=== PATIENT | male | born 1990 | race Caucasian/White ===

== ENCOUNTER 2022-12-09 16:52 | Emergency (ER) | payer OTHER, SELFPAY ==
[2022-12-09 17:09] VITALS: BP 144/76; PULSE 70; RESP 18; TEMP 36.8; O2SAT 99; BMI 32.3
--- NOTE | 2022-12-09 18:22 | ED.EAR ---
HPI - Ear Problem General Chief complaint: Ear Problems Stated complaint: left ear pressure Related Data Allergies Allergy/AdvReac Type Severity Reaction Status Date / Time bee pollen [BEE STINGS] Allergy Unknown SWELLING Unverified 01/13/20 15:59 Physical Exam Vital Signs: Vital Signs: Last Vital Signs Temp 98.3 F 12/09/22 17:09 Pulse 70 12/09/22 17:09 Resp 18 12/09/22 17:09 BP 144/76 H 12/09/22 17:09 Pulse Ox 99 12/09/22 17:09 O2 Del Method Room Air 12/09/22 17:09 BMI result Body Mass Index 32.3
== END 2022-12-09 18:52 | disposition left against medical advice (07) ==
PROVIDERS: Emergency Provider Emergency Medicine
DX: H92.02 Otalgia, left ear (principal); Z53.21 Procedure and treatment not carried out due to patient leaving prior to being seen by health care provider
CPT/HCPCS: 99281

== ENCOUNTER 2023-04-06 19:54 | Emergency (ER) | payer OTHER, SELFPAY ==
--- NOTE | 2023-04-06 | ECG_ITS ---
Test Reason : CHEST PAIN Blood Pressure : / mmHG Vent. Rate : 097 BPM Atrial Rate : 097 BPM P-R Int : 166 ms QRS Dur : 090 ms QT Int : 352 ms P-R-T Axes : 048 038 032 degrees QTc Int : 447 ms Normal sinus rhythm Normal ECG When compared with ECG of 31-AUG-2017 07:45, No significant change was found Referred By: Generic ED Physician Electronically Signed By:Asim Gilman
[2023-04-06 20:10] VITALS: BP 148/83; PULSE 94; RESP 18; TEMP 37; O2SAT 97; BMI 35.8
[2023-04-06 21:08] LABS: MANUAL DIFF FLAG NO
[2023-04-06 21:10] LABS: Basophils Absolute Auto 0.1 X10*3/uL (0.0-0.2); Basophils Percent Auto 0.6 % (0-2); Eosinophils Absolute Auto 0.5 X10*3/uL (0.0-0.4); Eosinophils Percent Auto 3.9 % (0-4); Hematocrit 43.3 % (42.0-52.0); Hemoglobin 15.2 g/dl (14.0-18.0); Imm Gran Abs Auto 0.03 X10*3/uL (0.00-0.03); Imm Gran Pct Auto 0.2 % (0.0-0.4); Lymphocytes Absolute Auto 3.4 X10*3/uL (1.2-4.9); Mean Corpuscular HGB Conc 35.1 g/dl (31.0-36.0); Mean Corpuscular Volume 85.6 fL (80.0-98.0); Mean Platelet Volume 11.2 fL (9.4-12.4); Monocytes Percent Auto 8.5 % (2-11); Neutrophils Absolute Auto 7.2 x10*3/uL (2.0-8.3); Neutrophils Percent Auto 58.8 % (45-73); Platelet Count 261 X10*3/uL (160-400); Red Blood Count 5.06 X10*6/uL (4.60-5.80); Red Cell Distribution Width 13.2 % (11.0-16.0); White Blood Count 12.2 X10*3/uL (4.8-10.8)
[2023-04-06 21:27] LABS: Alanine Aminotransferase 17 U/L (0-40); Albumin Level 4.4 g/dL (3.5-5.0); Alkaline Phosphatase 99 U/L (39-117); Anion Gap 13 (12-20); Aspartate Amino Transferase 18 U/L (5-37); Bilirubin Total 0.4 mg/dL (0.0-1.0); Blood Urea Nitrogen 15 mg/dL (9-16); Calcium 9.7 mg/dL (8.4-10.2); Carbon Dioxide 26 mmol/L (22-29); Chloride 106 mmol/L (96-108); Creatinine Clr Calc Pharmacy 126.8; Estimated Glomerular Filt Rate > 60; Glucose Random 121 mg/dL (60-115); Potassium 3.8 mmol/L (3.3-5.1); Sodium 141 mmol/L (135-145); Total Protein 7.8 g/dL (6.5-8.0)
[2023-04-06 21:35] LABS: Troponin-I High Sensitivity < 2.7 ng/L (<3.5-35.0)
--- NOTE | 2023-04-06 22:30 | ED.GENADULT ---
HPI - General Adult General Chief complaint: General Medical Stated complaint: chest pain,sob sweating,shaking Time Seen by Provider: 04/06/23 22:07 Source: patient Mode of arrival: ambulatory History of Present Illness HPI narrative: 33-year-old male without significant past medical history, denies any drugs or alcohol, states that this is his 2nd episode of shaking and sweating uncontrollably and feeling very anxious but denies palpitations and instead states that he did not really have chest pain but when he began experiencing all of these symptoms he felt his that his chest was tight. He denies any recent fever, chills, nausea/ vomiting but states that he had an episode of diarrhea after this. Patient reports that this happened approximately 1 week ago and he was seen at [facility]. Patient states that these events seem to occur shortly after he eats a large meal. Patient also endorses that he has a rash to bilateral hands/fingers that is been ongoing for over a year and is intermittently itchy but endorses that he missed his dermatology appointment. Related Data Allergies Allergy/AdvReac Type Severity Reaction Status Date / Time bee pollen [BEE STINGS] Allergy Unknown SWELLING Verified 04/06/23 20:13 Review of Systems Review of Systems: Pertinent positives and negatives as stated in HPI [facility] Past Medical History Source: nursing notes reviewed Social History Social History Advance Directives: No Advance Directives Information Provided: Yes Physical Exam ED Vital Signs: Vital Signs - 24 hr 04/06/23 20:10 Temperature 98.6 F Pulse Rate 94 Respiratory Rate 18 Blood Pressure 148/83 H Pulse Oximetry 97 Oxygen Delivery Method Room Air BMI result Body Mass Index 35.8 VITAL SIGNS: Reviewed. GENERAL: Well developed, well nourished, in no acute distress. HEAD: Normocephalic/atraumatic EYES: PERRLA, EOMI EARS: Ext canals without abnormality NOSE: Nares patent bilateral OROPHARYNX: no oral lesions noted, posterior pharynx clear NECK: Supple, no adenopathy LUNGS: Normal breath sounds. No adventitious sounds or accessory muscle use. SpO2<97> CARDIOVASCULAR: Regular rate and rhythm without noted murmurs ABDOMEN: Soft, non-tender, non-distended with bowel sounds. MUSCULOSKELETAL: No tenderness, deformities, or effusions noted on gross inspection. EXTREMITIES: No cyanosis, clubbing or edema. SKIN: Inspection of the skin reveals rash to bilateral hands without nail involvement, no noted swollen joints, the rash is nowhere else. NEUROLOGIC: Alert and oriented x 4. Strength and sensation to light touch were grossly intact x 4. Medical Decision Making Medical Decision Making [facility] Narrative: 33-year-old male with history and clinical presentation, DDX: Anxiety, Food allergy/IBS/IBD, regarding rash on bilateral hands some form of contact dermatitis does not appear to be consistent with psoriasis or eczema I reviewed all investigations and hematologic indices demonstrate a non infectious leukocytosis, there is no left shift, patient is afebrile. Chemistry indices are grossly within normal limits and there is no demonstrated NOAH or electrolytes/liver enzymes derangements. High sensitivity troponin is undetectable, although patient is not describing symptoms consistent with an ACS etiology. There are no acute findings on EKG. My interpretation is that patient may be experiencing symptoms associated with combination of panic disorder and IBS symptoms. There were no findings to suggest ACS/infectious etiology and no electrolyte or renal dysfunction. Patient was strongly encouraged to follow-up with his primary care doctor by calling the office 1st thing in the morning Differential Diagnosis Differential Diagnoses: The differential diagnosis associated with the presentation includes Please see the discussion above Admission/Observation Consideration of admission/observation: Escalation of care including admission/observation considered Please see the discussion above Lab Data [facility] Lab Attestation statement: I reviewed the patient's lab results. Please see the discussion above 04/06/23 21:00 04/06/23 21:00 Labs: Lab Results 04/06/23 Range/Units 21:00 WBC 12.2 H (4.8-10.8) X10*3/uL RBC 5.06 (4.60-5.80) X10*6/uL Hgb 15.2 (14.0-18.0) g/dl Hct 43.3 (42.0-52.0) % MCV 85.6 (80.0-98.0) fL MCH 30.0 (27.0-33.0) pg MCHC 35.1 (31.0-36.0) g/dl RDW 13.2 (11.0-16.0) % Plt Count 261 (160-400) X10*3/uL MPV 11.2 (9.4-12.4) fL Immature Gran % (Auto) 0.2 (0.0-0.4) % Neut % (Auto) 58.8 (45-73) % Lymph % (Auto) 28.0 (20-40) % Kendall % (Auto) 8.5 (2-11) % Eos % (Auto) 3.9 (0-4) % Baso % (Auto) 0.6 (0-2) % Lymph # (Auto) 3.4 (1.2-4.9) X10*3/uL Kendall # (Auto) 1.0 (0.1-1.2) X10*3/uL Eos # (Auto) 0.5 H (0.0-0.4) X10*3/uL Baso # (Auto) 0.1 (0.0-0.2) X10*3/uL Abs Immat Gran (auto) 0.03 (0.00-0.03) X10*3/uL Absolute Neuts (auto) 7.2 (2.0-8.3) x10*3/uL Absolute Nucleated RBC 0.000 (0.0-0.012) X10*3/uL Nucleated RBC % (auto) 0.0 (0.0-0.2) /100WBC Sodium 141 (135-145) mmol/L Potassium 3.8 (3.3-5.1) mmol/L Chloride 106 (96-108) mmol/L Carbon Dioxide 26 (22-29) mmol/L Anion Gap 13 (12-20) BUN 15 (9-16) mg/dL Creatinine 0.92 (0.5-1.4) mg/dL Estim Creat Clear Calc 126.8 Estimated GFR > 60 Random Glucose 121 H (60-115) mg/dL Calcium 9.7 (8.4-10.2) mg/dL Total Bilirubin 0.4 (0.0-1.0) mg/dL AST 18 (5-37) U/L ALT 17 (0-40) U/L Alkaline Phosphatase 99 (39-117) U/L Troponin I High Sens < 2.7 (<3.5-35.0) ng/L Total Protein 7.8 (6.5-8.0) g/dL Albumin 4.4 (3.5-5.0) g/dL Independent Interpretation I performed an independent interpretation of an: EKG Interpretation: Normal sinus rhythm, HR-97, no STEMI, WV/QRS/QTC is within normal limits. Discharge Plan Discharge Clinical Impression: Anxiety, Irritable bowel syndrome (IBS), Allergy, food, Contact dermatitis Patient Disposition: Home, Self-Care Instructions: Anxiety (ED), Contact Dermatitis (ED), Irritable Bowel Syndrome (ED), Food Allergy (ED) Additional Instructions: 1. I recommend that you follow-up with your primary care doctor by calling the office 1st thing tomorrow morning and setting up an appointment for re-evaluation and further outpatient management. 2. Several of these information packet described conditions that would need to be further worked up for confirmation. Return to the ER if you develop any acute worsening of your symptoms. Referrals: Alejandra Mena MD [Primary Care Provider] -
[2023-04-06 22:53] VITALS: PULSE 71; RESP 16; O2SAT 99
== END 2023-04-06 22:54 | disposition home or self-care (01) ==
PROVIDERS: Emergency Provider Student in an Organized Health Care Education/Training Program; PCP Family Medicine
DX: F41.9 Anxiety disorder, unspecified (principal); L23.6 Allergic contact dermatitis due to food in contact with the skin; K58.9 Irritable bowel syndrome, unspecified
CPT/HCPCS: 36415; 80053; 84484; 85025; 93005; 99283

== ENCOUNTER → 2023-04-06 20:04 | Outpatient (BNV) | payer OTHER, SELFPAY | PROVIDERS: Emergency Provider Student in an Organized Health Care Education/Training Program; PCP Family Medicine; Visit Provider Internal Medicine Cardiovascular Disease | DX: R07.9 Chest pain, unspecified (principal) | CPT/HCPCS: 93010 ==

== ENCOUNTER → 2023-04-18 15:31 | Outpatient (BNVA) | payer SELFPAY | PROVIDERS: PCP Family Medicine ==

== ENCOUNTER 2023-04-27 12:01 | Emergency (ER) | payer OTHER, SELFPAY ==
[2023-04-27 13:13] VITALS: BP 148/86; PULSE 73; RESP 18; TEMP 36.3; O2SAT 98; BMI 35.2
--- NOTE | 2023-04-27 13:15 | ED_ITS ---
HPI - General Adult General Chief complaint: Upper Respiratory Symptoms Stated complaint: Cold symptoms Time Seen by Provider: 04/27/23 14:35 Source: patient, RN notes reviewed and old records reviewed Mode of arrival: ambulatory History of Present Illness HPI narrative: 33-year-old male with no significant past medical history presenting to the ED complaining of nasal congestion, rhinorrhea, myalgias, sore throat and sneezing x few days. Admits to COVID-19 testing at home which was negative. 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 Denies fever/chills, ear pain, CP/SOB, cough, travel Related Data Allergies Allergy/AdvReac Type Severity Reaction Status Date / Time bee pollen [BEE STINGS] Allergy Unknown SWELLING Verified 04/27/23 13:13 Review of Systems Review of Systems: Constitutional: No Fever, No Chills ENT/Mouth: No Ear Pain, + Nasal Congestion, No Sinus Pain, No Hoarseness, + sore throat, +Rhinorrhea, No Swallowing Difficulty Cardiovascular: No Chest Pain, No SOB Respiratory: +Cough, No Sputum, No Wheezing Gastrointestinal: No Nausea, No Vomiting, No Diarrhea, No Constipation, No Abdominal pain Musculoskeletal: No joint pain, + Myalgias, No Joint Swelling Skin: No Skin Lesions, No rash Neuro: No Weakness, No Numbness, No Paresthesias Yes all other systems are reviewed and are negative Constitutional: Constitutional: Reports as per [facility] Past Medical History Attestation statement: The following information was validated with the patient. Source: old records reviewed Social History Social History Advance Directives: No Physical Exam ED Vital Signs: Vital Signs - 24 hr 04/27/23 13:13 Temperature 97.4 F Pulse Rate 73 Respiratory Rate 18 Blood Pressure 148/86 H Pulse Oximetry 98 Oxygen Delivery Method Room Air BMI result Body Mass Index 35.2 Const General: cooperative, healthy appearing and no acute distress Orientation/consciousness: patient oriented x3 Limitations: no limitations HENMT Head: Yes normal to inspection and Yes atraumatic Ears: hearing grossly normal bilaterally, external ears normal, TM's normal bilaterally and mastoids normal General nose exam: Normal external nose present Face and sinus: Yes normal facial exam Mouth: Normal oral and palatal mucosa present Throat: Yes posterior oropharynx normal, Yes uvula midline, No peritonsillar mass, No uvula laterally displaced and No uvular edema Eyes General: appearance normal, both eyes and all related structures EOM: EOMs intact bilaterally Neck Neck: Yes normal visual inspection and Yes no meningeal signs Resp Effort & Inspection: normal respiratory effort and no respiratory distress Auscultation: clear to auscultation bilaterally, no crackles and no wheezes Cardio Rate: regular rate Heart sounds: S1 normal heart sound present and S2 normal heart sound present Skin Rashes: no rashes Wounds: no wounds Neuro General: patient oriented x3, tone normal and no meningeal signs Cranial nerves: Yes CN's II-XII intact bilaterally Gait exam (Neuro): Normal gait present Extrem General: Yes normal to inspection Course Course Course Narrative: This is a rapid medical exam: Additional HPI, ROS, PE not included below will be deferred to primary provider. Patient is a 33-year-old male presenting to the ED with complaint of nasal congestion with yellow/green mucous since yesterday, sore throat yesterday which improved with salt water gargle. Denies fevers. Tested negative for Covid at home. Works at [employer], states many co-workers are sick. Plan: viral and strep swabs -RSV positive Results discussed with patient including worrisome signs and symptoms and strict return precautions, and when to return to the emergency department. They verbalized understanding and feel safe for discharge at this time. Medical Decision Making Medical Decision Making [facility] Narrative: 33-year-old male with no significant past medical history presenting to the ED complaining of nasal congestion, rhinorrhea, myalgias, sore throat and sneezing x few days. On exam VSS, NAD, nontoxic appearing, lungs CTA. Exam otherwise nonfocal. Concern for viral illness. Lower suspicion for pneumonia, ACS/PE or strep throat. No evidence of BUSINESS ASSISTANT/retropharyngeal abscess Plan: Viral testing, rapid strep Please refer to course for remaining clinical decision making, interpretation of labs/imaging results, and discussions with consultants and/or family members. Differential Diagnosis Differential Diagnoses: The differential diagnosis associated with the presentation includes As above Lab Data [facility] Lab Attestation statement: I reviewed the patient's lab results. Labs: Lab Results 04/27/23 Range/Units 13:42 Influenza Type A (PCR) NEGATIVE (Negative) Influenza Type B (PCR) NEGATIVE (Negative) RSV RNA Qual (PCR) POSITIVE A (Negative) SARS-CoV-2 RNA (RT-PCR) NEGATIVE (Negative) S. pyogenes GrpA MECCA Negative (Negative) External Record Review External record reviewed: Inpatient record, Office record, Outpatient record, Prior outpatient labs, Prior outpatient radiology, Primary care record and Outside ED record Tests considered The following testing was considered but not selected: As above Prescription Management I considered prescription management with: Pain Medication and Antibiotic Discharge Plan Discharge Clinical Impression: Respiratory syncytial virus (RSV) Patient Disposition: Home, Self-Care Referrals: Alejandra Mena MD [Primary Care Provider] - 5 days
[2023-04-27 14:27] LABS: IDNOW Serial# 08D9AD1C; Strep A Nucleic Acid Negative (Negative)
[2023-04-27 14:40] LABS: Influenza A PCR NEGATIVE (Negative); Influenza B PCR NEGATIVE (Negative); Resp Syncy Virus RNA Qual PCR POSITIVE (Negative); SARS COV2 PCR INHOUSE NEGATIVE (Negative)
== END 2023-04-27 16:06 | disposition home or self-care (01) ==
PROVIDERS: Registered Nurse Emergency; Emergency Provider Emergency Medicine; PCP Family Medicine
DX: R09.81 Nasal congestion (principal); B97.4 Respiratory syncytial virus as the cause of diseases classified elsewhere; Z20.822 Contact with and (suspected) exposure to COVID-19; Z20.828 Contact with and (suspected) exposure to other viral communicable diseases
CPT/HCPCS: 0241U; 87651; 99283

== ENCOUNTER 2023-09-06 07:58 | Emergency (ER) | payer OTHER, SELFPAY ==
--- NOTE | ~2023-09-06 | XR_ITS ---
EXAMINATION: XR CHEST CLINICAL INFORMATION: Chest tightness. COMPARISON: Chest radiograph 09/09/2017. TECHNIQUE: 2 views of the chest were obtained. FINDINGS: No significant abnormality is noted involving the heart, lungs, mediastinum, bony thorax or soft tissues. XR/XR chest 2V IMPRESSION: Unremarkable examination.
[2023-09-06 08:12] VITALS: BP 146/88; PULSE 74; RESP 17; TEMP 35.7; O2SAT 100; BMI 40.6
--- NOTE | 2023-09-06 09:10 | ED_ITS ---
HPI - General Adult General Chief complaint: Anxiety Stated complaint: anxiety Time Seen by Provider: 09/06/23 09:07 Source: patient, RN notes reviewed and old records reviewed Mode of arrival: ambulatory Limitations: no limitations History of Present Illness HPI narrative: 33 year old male with pmhx significant for anxiety presents to the ED today for evaluation of increased anxiety x1 year, worsening over the last week. Endorses feeling overwhelmed, hopeless. Admits to intermittent chest tightness. No chest pain. He reports increased family stressors as his father who is almost 60 years old was almost arrested last week. He states that this has been weighing on him. Admits to increased anxiety last summer for which his PCP placed him on an anti- anxiety medication which helped at the time. He has not taken this medication since and cannot recall the name of this. Reports seeing a therapist via telehealth in the past however discontinued therapy as he did not like speaking with someone over the phone. He would prefer in person counseling. States he has a great support system at home in family members. Denies SI/HI. Denies AH/TH/VH. Denies ilicit substance use. Denies etoh consumption. Denies fevers, chilld, sore throat, cough, hemoptysis, shortness of breath, wheezing, N/V, tingling in extremities, calf pain/swelling. Related Data Previous Rx's ?Medication ?Instructions ?Recorded hydroxyzine HCl 25 mg tablet 25 mg PO TID PRN anxiety #30 tabs 09/06/23 Allergies Allergy/AdvReac Type Severity Reaction Status Date / Time bee pollen [BEE STINGS] Allergy Unknown SWELLING Verified 09/06/23 08:18 Review of Systems 2 Review of Systems: Constitutional: No fever, chills, fatigue, night sweats, weight changes ENT/Mouth: No ear pain, hearing loss, nasal congestion, sinus pain, rhinorrhea, sore throat Eyes: No eye pain, swelling, redness, vision changes, discharge Cardio: No chest pain, palpitations, ZAVALA, orthopnea, peripheral edema, +chest tightness Pulm: No SOB, cough, sputum, wheezing, dyspnea, hemoptysis GI: No nausea, vomiting, hematemesis, abdominal pain, diarrhea, constipation, hematochezia, melena : No irregular bleeding, dysuria, frequency, urgency, hesitancy, hematuria, flank pain, urinary flow changes, urinary incontinence or retention MSK: No back pain, neck pain, joint pain, myalgias Skin: No lesions, rashes Neuro: No weakness, numbness, paresthesias, LOC, dizziness, headache Psych: No panic, depression, SI/HI, AH/VH, +anxiety All other systems reviewed and are negative. FORMERLY [facility], [facility] Past Medical History Attestation statement: The following information was validated with the patient. Source: old records reviewed and nursing notes reviewed Social History Social History Advance Directives: No Advance Directives Information Provided: No Do you have a plan to hurt others: No Plan Physical Exam ED Vital Signs: Vital Signs - 24 hr 09/06/23 08:12 Temperature 96.3 F L Pulse Rate 74 Respiratory Rate 17 Blood Pressure 146/88 H Pulse Oximetry 100 Oxygen Delivery Method Room Air BMI result Body Mass Index 40.6 patient hypertensive, vitals otherwise WNL. Const General: cooperative, healthy appearing, comfortable and no acute distress Orientation/consciousness: patient oriented x3 Limitations: no limitations HENMT Head: Yes normal to inspection, Yes No palpable skull fracture present, Yes normocephalic and Yes atraumatic Eyes General: appearance normal, both eyes and all related structures Conjunctivae: conjunctivae normal Sclerae: sclerae normal Pupils: Equal, round and reactive pupils present Neck Neck: Yes normal visual inspection, Yes full ROM, Yes no lymphadenopathy and Yes no meningeal signs Chest Chest palpation & inspection: normal inspection of the chest and normal palpation of entire chest wall Resp Effort & Inspection: normal respiratory effort and able to speak in complete sentences Auscultation: clear to auscultation bilaterally Cardio Jugular venous distension: no JVD Rate: regular rate Rhythm: regular rhythm Skin General skin exam: no rashes or lesions noted Neuro General: patient oriented x3, gait normal, no meningeal signs and no focal motor deficits Cranial nerves: Yes Equal, round and reactive pupils present Motor exam (neuro): 5/5 motor strength present throughout and Pronator motor function not present Coordination: [id number]-rn-[id number] test normal, yjfj-[id number] test normal and Normal rapid alternating movements of the distal upper extremity present (Neuro) Pupils: Normal pupillary reactivity/response: bilateral Course Course Course Narrative: 0941-- On chart review, patient was prescribed hydroxyzine by his PCP in November of 2022. I mentioned this medication to patient he and he states that this was the medication that helped with his anxiety last year. I offered to give him a dose in the emergency department today however he drove both himself and his son to the ED today and will not be able to get another ride home. He states that he would rather take this medication when he gets home from his visit. > labs and ekg pending 1130-- CBC showing leukocytosis to 14.5 without left shift. No anemia. H&H stable. Chemistry without acute electrolyte abnormality requiring intervention. Total bili 1.4. Liver function WNL. Renal function WNL. Troponin undetectable > no ACS. Lipase WNL. He was tested negative for COVID, flu, RSV. EKG showing normal sinus rhythm with sinus arrhythmia with rate of 66 bpm, QT 376, QTC 394, no acute ischemic changes or ST elevations. > wbc slightly elevated likely secondary to acute anxiety. no concern for infection at this time. I feel patient is safe for discharge home. As hydroxyzine helps his anxiety last year, this has been sent to pharmacy for him. Will also provide contact information for [facility] for therapy. Patient has remained stable throughout ED visit today. Discussed worrisome signs and symptoms and when to return to the ED. All questions answered at this time. Patient is agreeable with disposition and stable for discharge. Medical Decision Making Medical Decision Making [facility] Narrative: 33 year old male with pmhx significant for anxiety presents to the ED today for evaluation of increased anxiety x1 year, worsening over the last week. Patient hypertensive, vitals otherwise WNL. He is nontoxic-appearing and in no acute distress. On exam, can warm, dry, intact. Exam is nonfocal. Cerebellum intact. Regular rate and rhythm. Lungs are CTA bilaterally. Anterior, lateral and posterior chest wall without tenderness or crepitus. No deformities. Ambulating with steady gait. Differential diagnosis includes anemia, electrolyte abnormality, anxiety. Lower suspicion for ACS or arrhythmia. Unlikely pneumonia, viral syndrome, ICH, CVA/TIA, dissection, suicidal ideation, polysubstance abuse, ETOH abuse or withdrawal. Plan for basic labs, EKG, re-evaluation. Differential Diagnosis Differential Diagnoses: The differential diagnosis associated with the presentation includes as above. Admission/Observation Not indicated. Lab Data [facility] Lab Attestation statement: I reviewed the patient's lab results. as above. 09/06/23 09:35 09/06/23 09:35 Labs: Lab Results 09/06/23 09/06/23 Range/Units 09:35 10:11 WBC 14.5 H (4.8-10.8) X10*3/uL RBC 5.77 (4.60-5.80) X10*6/uL Hgb 16.9 (14.0-18.0) g/dl Hct 47.7 (42.0-52.0) % MCV 82.7 (80.0-98.0) fL MCH 29.3 (27.0-33.0) pg MCHC 35.4 (31.0-36.0) g/dl RDW 13.2 (11.0-16.0) % Plt Count 272 (160-400) X10*3/uL MPV 10.6 (9.4-12.4) fL Immature Gran % (Auto) 0.5 H (0.0-0.4) % Neut % (Auto) 72.2 (45-73) % Lymph % (Auto) 18.9 L (20-40) % [place] % (Auto) 6.0 (2-11) % Eos % (Auto) 1.9 (0-4) % Baso % (Auto) 0.5 (0-2) % Lymph # (Auto) 2.7 (1.2-4.9) X10*3/uL [place] # (Auto) 0.9 (0.1-1.2) X10*3/uL Eos # (Auto) 0.3 (0.0-0.4) X10*3/uL Baso # (Auto) 0.1 (0.0-0.2) X10*3/uL Abs Immat Gran (auto) 0.07 H (0.00-0.03) X10*3/uL Absolute Neuts (auto) 10.5 H (2.0-8.3) x10*3/uL Absolute Nucleated RBC 0.000 (0.0-0.012) X10*3/uL Nucleated RBC % (auto) 0.0 (0.0-0.2) /100WBC Sodium 140 (135-145) mmol/L Potassium 4.6 (3.3-5.1) mmol/L Chloride 106 (96-108) mmol/L Carbon Dioxide 24 (22-29) mmol/L Anion Gap 15 (12-20) BUN 9 (9-16) mg/dL Creatinine 0.83 (0.5-1.4) mg/dL Estim Creat Clear Calc 150.1 Estimated GFR > 60 Random Glucose 112 (60-115) mg/dL Calcium 10.0 (8.4-10.2) mg/dL Magnesium 1.9 (1.6-2.6) mg/dL Total Bilirubin 1.4 H (0.0-1.0) mg/dL AST 20 (5-37) U/L ALT 21 (0-40) U/L Alkaline Phosphatase 86 (39-117) U/L Troponin I High Sens < 2.7 (<3.5-35.0) ng/L Total Protein 8.5 H (6.5-8.0) g/dL Albumin 4.8 (3.5-5.0) g/dL Lipase 11 (8-78) U/L Influenza Type A (PCR) NEGATIVE (Negative) Influenza Type B (PCR) NEGATIVE (Negative) RSV RNA Qual (PCR) NEGATIVE (Negative) SARS-CoV-2 RNA (RT-PCR) NEGATIVE (Negative) Independent Interpretation I performed an independent interpretation of an: EKG and Plain X-Ray Interpretation: EKG showing normal sinus rhythm with sinus arrhythmia at a rate of 66 beats per minute, QT 376, QTC 394, no acute ischemic changes or ST elevations. Chest x-ray does not show infiltrate or consolidation, agree with radiologist's interpretation. Radiology Impression Discussion of test interpretation with radiology: I have reviewed the radiologist's reading. Radiologist Impression: EXAMINATION: XR CHEST CLINICAL INFORMATION: Chest tightness. COMPARISON: Chest radiograph 09/09/2017. TECHNIQUE: 2 views of the chest were obtained. FINDINGS: No significant abnormality is noted involving the heart, lungs, mediastinum, bony thorax or soft tissues. XR/XR chest 2V IMPRESSION: Unremarkable examination. External Record Review External record reviewed: Inpatient record Prescription Management I considered prescription management with: Other (hydroxyzine) Chronic Conditions Patient?s care impacted by: Other (anxiety) Social Determinants Patient?s care significantly limited by Social Determinants of Health including: Problems related to primary support group and Other Social Determinant of Health Critical Care Time Critical Care Time Critical Care Time: No Discharge Plan Discharge Clinical Impression: Anxiety Patient Disposition: Home, Self-Care Instructions: Anxiety (ED) Additional Instructions: Your labs today are reassuring. Your EKG is normal. Your chest x-ray is normal. You tested negative for COVID, flu, RSV. Symptoms may be related to anxiety. Hydroxyzine as an anti-anxiety medication that has been sent to your pharmacy. Take one 25 mg up to three times a day for anxiety. Please follow up with your PCP regarding further anxiety management/ prescriptions. As discussed, return with new or worsening symptoms such as increasing depression, thoughts of feeling hopeless, or thoughts of harming yourself. In the case of an emergency call 911. [facility]: [address] [facility] Prescriptions: New hydroxyzine HCl 25 mg tablet 25 mg PO TID PRN (Reason: anxiety) Qty: 30 0RF Referrals: Alejandra Mena MD [Primary Care Provider] - Print Language: Russian
--- NOTE | 2023-09-06 09:25 | ECG_ITS ---
Test Reason : ANXIETY Blood Pressure : / mmHG Vent. Rate : 066 BPM Atrial Rate : 066 BPM P-R Int : 176 ms QRS Dur : 096 ms QT Int : 376 ms P-R-T Axes : 041 050 028 degrees QTc Int : 394 ms Normal sinus rhythm with sinus arrhythmia Normal ECG When compared with ECG of 06-APR-2023 20:04, QT has shortened Referred By: Kaelyn Gilbert Electronically Signed By:Asim Gilman
[2023-09-06 09:38] LABS: MANUAL DIFF FLAG NO
[2023-09-06 09:39] LABS: Basophils Absolute Auto 0.1 X10*3/uL (0.0-0.2); Basophils Percent Auto 0.5 % (0-2); Eosinophils Absolute Auto 0.3 X10*3/uL (0.0-0.4); Eosinophils Percent Auto 1.9 % (0-4); Hematocrit 47.7 % (42.0-52.0); Hemoglobin 16.9 g/dl (14.0-18.0); Imm Gran Abs Auto 0.07 X10*3/uL (0.00-0.03); Imm Gran Pct Auto 0.5 % (0.0-0.4); Lymphocytes Absolute Auto 2.7 X10*3/uL (1.2-4.9); Lymphocytes Percent Auto 18.9 % (20-40); Mean Corpuscular HGB Conc 35.4 g/dl (31.0-36.0); Mean Corpuscular Hemoglobin 29.3 pg (27.0-33.0); Mean Corpuscular Volume 82.7 fL (80.0-98.0); Mean Platelet Volume 10.6 fL (9.4-12.4); Monocytes Absolute Auto 0.9 X10*3/uL (0.1-1.2); Neutrophils Absolute Auto 10.5 x10*3/uL (2.0-8.3); Neutrophils Percent Auto 72.2 % (45-73); Platelet Count 272 X10*3/uL (160-400); Red Blood Count 5.77 X10*6/uL (4.60-5.80); Red Cell Distribution Width 13.2 % (11.0-16.0); White Blood Count 14.5 X10*3/uL (4.8-10.8)
--- NOTE | 2023-09-06 09:43 | PC.NURSE ---
tech sin labs, ekg to be performed
[2023-09-06 09:58] LABS: Alanine Aminotransferase 21 U/L (0-40); Albumin Level 4.8 g/dL (3.5-5.0); Alkaline Phosphatase 86 U/L (39-117); Anion Gap 15 (12-20); Aspartate Amino Transferase 20 U/L (5-37); Bilirubin Total 1.4 mg/dL (0.0-1.0); Blood Urea Nitrogen 9 mg/dL (9-16); Carbon Dioxide 24 mmol/L (22-29); Chloride 106 mmol/L (96-108); Creatinine Clr Calc Pharmacy 150.1; Estimated Glomerular Filt Rate > 60; Glucose Random 112 mg/dL (60-115); Lipase 11 U/L (8-78); Magnesium 1.9 mg/dL (1.6-2.6); Potassium 4.6 mmol/L (3.3-5.1); Sodium 140 mmol/L (135-145); Total Protein 8.5 g/dL (6.5-8.0)
[2023-09-06 10:26] LABS: Troponin-I High Sensitivity < 2.7 ng/L (<3.5-35.0)
[2023-09-06 11:15] LABS: Influenza A PCR NEGATIVE (Negative); Influenza B PCR NEGATIVE (Negative); Resp Syncy Virus RNA Qual PCR NEGATIVE (Negative); SARS COV2 PCR INHOUSE NEGATIVE (Negative)
[2023-09-06 11:41] VITALS: BP 141/72; PULSE 70; RESP 18; TEMP 36.6; O2SAT 99
== END 2023-09-06 11:42 | disposition home or self-care (01) ==
PROVIDERS: Physician Assistant Medical; Emergency Provider Student in an Organized Health Care Education/Training Program; PCP Family Medicine
DX: F41.9 Anxiety disorder, unspecified (principal); R07.89 Other chest pain; Z03.818 Encounter for observation for suspected exposure to other biological agents ruled out
CPT/HCPCS: 0241U; 36415; 71046; 80053; 83690; 83735; 84484; 85025; 93005; 99283

== ENCOUNTER → 2023-09-06 09:25 | Outpatient (BNV) | payer OTHER, SELFPAY | PROVIDERS: Emergency Provider Student in an Organized Health Care Education/Training Program; PCP Family Medicine; Visit Provider Internal Medicine Cardiovascular Disease | DX: I49.9 Cardiac arrhythmia, unspecified (principal) | CPT/HCPCS: 93010 ==

== ENCOUNTER 2023-09-07 02:47 | Emergency (ER) | payer OTHER, SELFPAY ==
[2023-09-07 02:52] VITALS: BP 138/95; PULSE 76; RESP 16; TEMP 36.2; O2SAT 100; BMI 40.3
== END 2023-09-07 06:40 | disposition left against medical advice (07) ==
LOC: HO.ED 06:36
PROVIDERS: Emergency Provider Emergency Medicine; PCP Family Medicine
DX: R50.9 Fever, unspecified (principal); R19.7 Diarrhea, unspecified; Z53.21 Procedure and treatment not carried out due to patient leaving prior to being seen by health care provider
CPT/HCPCS: 99281

== ENCOUNTER 2025-04-13 16:53 | Emergency (ER) | payer MEDICAID, SELFPAY ==
--- NOTE | ~2025-04-13 | CT_ITS ---
CLINICAL HISTORY: L flank pain Exam: Nonenhanced CT abdomen and pelvis with multiplanar reformats. Comparison: None. Findings: CT abdomen: Lung bases appear clear. Liver is free of gross focal lesions and ductal dilatation. Gallbladder appears unremarkable. Spleen is unremarkable. Pancreas and adrenal glands appear unremarkable. Left kidney reveals a small 3 mm nonobstructing lower pole calculus (4; 272). No ureteral stones or hydroureteronephrosis. Right kidney appears unremarkable. No free intraperitoneal fluid or retroperitoneal masses or adenopathy. Abdominal aorta is normal caliber. Bowel loops reveal no abnormal wall thickening or distention. The appendix is unremarkable. No significant diverticular disease. CT pelvis: Prostate gland and seminal vesicles are unremarkable. Urinary bladder is free of gross filling defects. No pelvic masses, fluid or adenopathy. Osseous structures reveal no destructive osseous lesions. There are degenerative disc changes L5-S1. Impression: 1. No acute abnormality or CT explanation for reported history of left flank pain. Specifically, a punctate nonobstructing left renal calculus is present. No ureteral stones or hydroureteronephrosis. This document has been electronically signed by: Fam Telles MD on 04/13/2025 18:06:58
[2025-04-13 16:56] VITALS: BP 146/86; PULSE 85; RESP 16; TEMP 36.9; O2SAT 98; BMI 37.9
--- NOTE | 2025-04-13 16:56 | ED_ITS ---
HPI - General Adult General Chief complaint: Abdominal Pain Stated complaint: LOWER ABD & BACK PAIN Time Seen by Provider: 04/13/25 16:55 Source: patient, RN notes reviewed and old records reviewed Mode of arrival: ambulatory Limitations: no limitations History of Present Illness ED Provider: Sarah OWUSU narrative: 35-year-old male presents for evaluation of abdominal pain, left flank pain and back pain pain He reports that his symptoms started about a week ago. He has not noticed any difficulty urinating. He has not noticed any blood in the urine. He has a history of kidney stones and states this feels similar. His pain radiates to his left testicle pain Currently he has 0/10 pain Denies any fevers, chills. Denies any rashes pain Denies any urethral discharge No other complaints or concerns at this time Related Data Previous Rx's ?Medication ?Instructions ?Recorded hydroxyzine HCl 25 mg tablet 25 mg PO TID PRN anxiety #30 tabs 09/06/23 Allergies Allergy/AdvReac Type Severity Reaction Status Date / Time bee pollen (BEE STINGS) Allergy Unknown SWELLING Verified 04/13/25 16:57 Review of Systems 2 Constitutional: Constitutional: Denies body ache(s), Denies chills, Denies fever(s) and Denies frequent falls Eyes: Eyes: Denies blurry vision ENT: Denies vertigo and Denies dizziness Cardiovascular: Cardiovascular: Denies chest pain and Denies dyspnea on exertion Respiratory: Respiratory: Denies cough and Denies dyspnea on exertion Gastrointestinal: Gastrointestinal: Reports abdominal pain and Denies nausea Genitourinary: Genitourinary: Reports genital pain, Denies dysuria and Reports flank pain Musculoskeletal: Musculoskeletal: Denies abnormal gait and Denies back pain Integumentary/Breasts: Skin/Breast: Denies rash Neurologic: Denies abnormal gait, Denies vertigo, Denies dizziness and Denies frequent falls Psychiatric: Psychiatric: Denies anxiety PMF Social History Social History Smoked in Last 30 Days: No Substance Use Type: Marijuana Advance Directives: No Advance Directives Information Provided: Yes Physical Exam ED Vital Signs: Vital Signs - 24 hr 04/13/25 16:56 04/13/25 20:12 04/13/25 20:34 Temperature 98.4 F 98.5 F 98.5 F Pulse Rate 85 75 75 Respiratory Rate 16 16 Blood Pressure 146/86 H 145/79 H 145/79 H Pulse Oximetry 98 99 99 Oxygen Delivery Method Room Air Room Air Room Air BMI result Body Mass Index 37.9 Const General: healthy appearing, comfortable, no acute distress, alert and awake Nutritional Appearance: well nourished Orientation/consciousness: patient oriented x3 HENMT Head: Yes normocephalic and Yes atraumatic Throat: Yes posterior oropharynx normal Eyes Eyelids: Yes eyelids normal Conjunctivae: conjunctivae normal Sclerae: sclerae normal Corneas: corneas normal Pupils: Equal, round and reactive pupils present EOM: EOMs intact bilaterally Neck Neck: Yes full ROM Resp Effort & Inspection: normal respiratory effort, able to speak in complete sentences, no audible wheezes and not labored Auscultation: clear to auscultation bilaterally Cardio Rate: regular rate Rhythm: regular rhythm GI Other: No CVA tenderness Inspection: No distended Palpation (GI): Soft to palpation, not firm, nontender, no guarding and not rigid Skin General skin exam: no rashes or lesions noted and elasticity normal Neuro General: patient oriented x3 Cranial nerves: Yes Equal, round and reactive pupils present and Yes Bilaterally intact EOM present Cognition (Neuro): normal cognition Extrem Other: Moving all extremities well without any obvious deformities Course Course Course Narrative: This is a rapid medical exam performed by Jose A Lara NP: Additional HPI, ROS, PE not included below will be deferred to primary provider. Patient is a 35y/o M presenting with 3 days of L flank pain radiating to both testicles. Also had some discomfort after urinating. States feels like prior kidney stone. Plan: labs, UA, CT Medical Decision Making Medical Decision Making MDM Narrative: 35-year-old male presents for evaluation of flank pain, lower abdominal pain radiating to his testicle. His physical exam is reassuring, at time my evaluation he has no abdominal pain testicular pain or back pain. His workup was largely unremarkable including his labs, urinalysis and the CT scan abdomen pelvis. No obstructing kidney stones noted. I did discuss a scrotal ultrasound the I have a very low suspicion of torsion as the patient is currently pain- free. The patient would like to be discharged home and he will return for new or worsening symptoms. You declined scrotal ultrasound at this time which I feel is appropriate due to low suspicion for torsion. Differential Diagnosis Differential Diagnoses: The differential diagnosis associated with the presentation includes Abdominal pain Constipation Obstructive uropathy Testicular torsion less likely Epididymitis Lab Data MDM Lab Attestation statement: I reviewed the patient's lab results. Mild leukocytosis to 13.4. No anemia. Normal platelet count. No electrolyte abnormalities warranting dimension. 04/13/25 17:26 04/13/25 17:26 Labs: Lab Results 04/13/25 Range/Units 17:26 WBC 13.4 H (4.8-10.8) X10*3/uL RBC 5.49 (4.60-5.80) X10*6/uL Hgb 16.0 (14.0-18.0) g/dl Hct 46.1 (42.0-52.0) % MCV 84.0 (80.0-98.0) fL MCH 29.1 (27.0-33.0) pg MCHC 34.7 (31.0-36.0) g/dl RDW 13.3 (11.0-16.0) % Plt Count 336 (160-400) X10*3/uL MPV 10.5 (9.4-12.4) fL Immature Gran % (Auto) 0.4 (0.0-0.4) % Neut % (Auto) 58.9 (45-73) % Lymph % (Auto) 30.5 (20-40) % [place] % (Auto) 7.1 (2-11) % Eos % (Auto) 2.4 (0-4) % Baso % (Auto) 0.7 (0-2) % Lymph # (Auto) 4.1 (1.2-4.9) X10*3/uL [place] # (Auto) 1.0 (0.1-1.2) X10*3/uL Eos # (Auto) 0.3 (0.0-0.4) X10*3/uL Baso # (Auto) 0.1 (0.0-0.2) X10*3/uL Abs Immat Gran (auto) 0.06 H (0.00-0.03) X10*3/uL Absolute Neuts (auto) 7.9 (2.0-8.3) x10*3/uL Absolute Nucleated RBC 0.000 (0.0-0.012) X10*3/uL Nucleated RBC % (auto) 0.0 (0.0-0.2) /100WBC Sodium 141 (135-145) mmol/L Potassium 4.1 (3.3-5.1) mmol/L Chloride 108 (96-108) mmol/L Carbon Dioxide 25 (22-29) mmol/L Anion Gap 12 (12-20) BUN 12 (9-16) mg/dL Creatinine 0.85 (0.5-1.4) mg/dL Estim Creat Clear Calc 143.3 Estimated GFR > 60 Random Glucose 103 (60-115) mg/dL Calcium 9.6 (8.4-10.2) mg/dL Total Bilirubin 0.7 (0.0-1.0) mg/dL AST 31 (5-37) U/L ALT 32 (0-40) U/L Alkaline Phosphatase 91 (39-117) U/L Total Protein 8.1 H (6.5-8.0) g/dL Albumin 4.8 (3.5-5.0) g/dL Urine Color Yellow Urine Appearance Clear Urine pH 6.0 (5.0-9.0) Ur Specific [place] 1.025 (1.005-1.025) Urine Protein Negative (Neg-Trace) mg/dL Urine Glucose (UA) Negative (Negative) mg/dL Urine Ketones Trace (Negative) mg/dL Urine Blood Negative (Negative) Urine Nitrite Negative (Negative) Ur Leukocyte Esterase Negative (Negative) Independent Interpretation I performed an independent interpretation of an: CT Scan Interpretation: No obstructive uropathy noted Radiology Impression Discussion of test interpretation with radiology: I have reviewed the radiologist's reading. Radiologist Impression: Findings: CT abdomen: Lung bases appear clear. Liver is free of gross focal lesions and ductal dilatation. Gallbladder appears unremarkable. Spleen is unremarkable. Pancreas and adrenal glands appear unremarkable. Left kidney reveals a small 3 mm nonobstructing lower pole calculus (4; 272). No ureteral stones or hydroureteronephrosis. Right kidney appears unremarkable. No free intraperitoneal fluid or retroperitoneal masses or adenopathy. Abdominal aorta is normal caliber. Bowel loops reveal no abnormal wall thickening or distention. The appendix is unremarkable. No significant diverticular disease. CT pelvis: Prostate gland and seminal vesicles are unremarkable. Urinary bladder is free of gross filling defects. No pelvic masses, fluid or adenopathy. Osseous structures reveal no destructive osseous lesions. There are degenerative disc changes L5-S1. Impression: 1. No acute abnormality or CT explanation for reported history of left flank pain. Specifically, a punctate nonobstructing left renal calculus is present. No ureteral stones or hydroureteronephrosis. This document has been electronically signed by: Fam Telles MD on 04/13/2025 18:06:58 Tests considered The following testing was considered but not selected: Considered scrotal ultrasound Discharge Plan Discharge Clinical Impression: Abdominal pain, lower Patient Disposition: Home, Self-Care Instructions: Acute Abdominal Pain (ED) Additional Instructions: Your workup in the ER today was reassuring. This includes your blood work, the CT scan of the abdomen pelvis in your urinalysis. It is possible that you recently passed a kidney stone, but there were no kidney stones actively causing problems. Return for new or worsening symptoms, especially develop worsening testicular pain you may benefit from a testicular ultrasound Prescriptions: No Action hydroxyzine HCl 25 mg tablet 25 mg PO TID PRN (Reason: anxiety) Qty: 30 0RF Interventions: ED Discharge Assessment Last Done: 04/13/25 20:34 Discharge Date/Time: 04/13/25 20:35 Print Language: Tajik
[2025-04-13 17:38] LABS: MANUAL DIFF FLAG NO
[2025-04-13 17:42] LABS: Hematocrit 46.1 % (42.0-52.0); Hemoglobin 16.0 g/dl (14.0-18.0); Imm Gran Abs Auto 0.06 X10*3/uL (0.00-0.03); Imm Gran Pct Auto 0.4 % (0.0-0.4); Lymphocytes Absolute Auto 4.1 X10*3/uL (1.2-4.9); Mean Corpuscular HGB Conc 34.7 g/dl (31.0-36.0); Mean Corpuscular Hemoglobin 29.1 pg (27.0-33.0); Mean Corpuscular Volume 84.0 fL (80.0-98.0); NRBC Abs Auto 0.000 X10*3/uL (0.0-0.012); NRBC Pct Auto 0.0 /100WBC (0.0-0.2); Platelet Count 336 X10*3/uL (160-400); Red Blood Count 5.49 X10*6/uL (4.60-5.80); White Blood Count 13.4 X10*3/uL (4.8-10.8)
[2025-04-13 17:43] LABS: Appearance Urine Clear; Glucose Urine UA Negative (Negative); PH 6.0 (5.0-9.0); Specific Gravity - Urine 1.025 (1.005-1.025)
[2025-04-13 17:56] LABS: Alanine Aminotransferase 32 U/L (0-40); Albumin Level 4.8 g/dL (3.5-5.0); Alkaline Phosphatase 91 U/L (39-117); Anion Gap 12 (12-20); Aspartate Amino Transferase 31 U/L (5-37); Blood Urea Nitrogen 12 mg/dL (9-16); Calcium 9.6 mg/dL (8.4-10.2); Carbon Dioxide 25 mmol/L (22-29); Chloride 108 mmol/L (96-108); Creatinine Clr Calc Pharmacy 143.3; Estimated Glomerular Filt Rate > 60; Potassium 4.1 mmol/L (3.3-5.1); Sodium 141 mmol/L (135-145); Total Protein 8.1 g/dL (6.5-8.0)
[2025-04-13 20:12] VITALS: BP 145/79; PULSE 75; TEMP 36.9; O2SAT 99
[2025-04-13 20:34] VITALS: BP 145/79; PULSE 75; RESP 16; TEMP 36.9; O2SAT 99
--- OUTSIDE RECORDS SUMMARY | 2025-04-13 21:05 | XMS_ITS | Clinical Summary ---
Author Organization [facility] ity Address [address] [place] [address] Care Team Providers Care Manager Integration Name Role Phone Alejandra Mena MD Primary Care Provider Allergies Active Allergy Reactions Criticality Noted Date Comments Bee Venom Protein (Honey Bee) Swelling 2019 hives Medications hydrOXYzine HCL (ATARAX) 25 mg tablet TAKE 1 TABLET BY MOUTH THREE TIMES A DAY NEEDED FOR ANXIETY FOR UP TO 360 DAYS 4 Active EPINEPHrine (EpiPen 2-Ariel) 0.3 mg/0.3 mL injection Inject 0.3 mg into the muscle as needed for Other (anaphylactic reaction). Fill with whichever brand is covered by insurance. 4 Active Active Problems Problem Noted Date Diagnosed Date GERD (gastroesophageal reflux disease) 3 Dyshidrotic eczema 05/04/2021 Elevated blood pressure, situational 04/29/2019 Obesity (BMI 35.0-39.9 without comorbidity) 02/27 Immunizations Immunization Administration Dates Next Due Influenza Quadravalent, MDCK , 0.5ml, with preservative (Flucelvax) 6mo and older 02/28/2021 Tdap Tetanus diptheria acell ular pertussis (Boostrix; Adacel) 7yo and older 09/05/2022 Surgical History Surgery Date Site/Laterality Comments OTHER SURGICAL HISTORY PROCEDURE: DENIES PREVIOUS SURGERY Medical History Medical History Date Comments Morbid obesity (CMS/HCC V24, CMS/HCC V28) DX:Morbid obesity (HCC) GERD (gastroesophageal reflu x disease) 12/11/2022 DX:GERD (gastroesophageal re flux disease) Family History Medical History Relation Name Comments Hyperlipidemia Father Heart attack Paternal Grandfather Relation Name Status Comments Father Alive Mother Alive Paternal Grandfather Social History Tobacco Use Types Packs/Day Years Used Date Smoking Tobacco: Never Smokeless Tobacco: Never Alcohol Use Standard Drinks/Week Comments Yes 0 (1 standard drink = 0.6 oz pur e alcohol) Sex and Gender Information Value Date Recorded Sex Assigned at Not on file Legal Sex Male 12:47 PM EST Gender Identity Not on file Sexual Orientation Not on file Last Filed Vital Signs Vital Sign Reading Time Taken Comments Blood Pressure 122/62 10/16/2023 10:44 AM EDT Pulse 81 10/16/2023 10:44 AM EDT Temperature - - Respiratory Rate - - Oxygen Saturation - - Inhaled Oxygen Concentration - - Weight 116 kg (256 lb 9.6 oz) 10/16/2023 10:44 A M EDT Height 167.6 cm (5' 6 ) 10/16/2023 10:44 AM EDT Body Mass Index 41.42 10/16/2023 10:44 AM EDT Plan of Treatment Health Maintenance Due Date Last Done Comments Hepatitis B Vaccines (1 of 3 - 19+ 3-dose series) 2009 HPV Vaccines (1 - 3-dose SCD M series) 2017 HIV Screening 03/26/2022 Hepatitis C Screening 03/26/2022 Social Influencers of Health Screening 03/26/2022 Hypertension/CHF/CAD Annual BMP Blood Test 09/06/2023 09/05/2022 Depression Screening 04/28/2024 COVID-19 Vaccine (3 - 2024-2 6 season) 2024 12/19/2020, 11/27/2020 Influenza Vaccine (#1) 2024 02/28/2021 Cholesterol Screening (Lipid Panel) 09/06/2027 09/05/2022 DTaP,Tdap,and Td Vaccines (2 - Td or Tdap) 09/05/2032 09/05/2022 RSV Immunization Adult Patients (1 - 1-dose 75+ series) 2065 HIB Vaccines Aged Out No longer eligi ble based on patient's age to complete this topic Hepatitis A Vaccines Aged Out No long er eligible based on patient's age to complete this topic IPV Vaccines Aged Out No longer eligi ble based on patient's age to complete this topic MMR Vaccines Aged Out No longer eligi ble based on patient's age to complete this topic Meningococcal ACWY Vaccine Aged Out N o longer eligible based on patient's age to complete this topic Meningococcal B Vaccine Aged Out No l onger eligible based on patient's age to complete this topic Pneumococcal Vaccine: Pediatrics (0 to 5 Years) and At-Risk Patients (6 to 49 Years) Aged Out No longer eligible b ased on patient's age to complete this topic RSV Immunization Patients Under 20 months Aged Out No longer eligible b ased on patient's age to complete this topic Varicella Vaccines Aged Out No longer eligible based on patient's age to complete this topic Procedures Procedure Name Priority Date/Time Associated Diagnosis Comments ANNUAL BMP BLOOD TEST Routine 09/05/2022 LIPID PANEL Routine 09/05/2022 from Last 3 Months or Most Recently Relevant to Health Maintenance Results * Annual BMP Blood Test (09/05/2022) Annual BMP Blood Test Abstracted Historical Provider HEALTH MAINTENANCE Final Result * (ABNORMAL) Lipid panel (09/05/2022) LDL/HDL Ratio 4 0 - 4 Triglycerides 151(A) 0 - 150 mg/dL Cholesterol 170 0 - 200 mg/dL HDL 48 >=40 mg/dL LDL Cholesterol 92 0 - 100 mg/dL Blood Venous blood specimen / Unknown Historical Provider LAB BLOOD ORDERABLES Fabi l Result from Last 3 Months or Most Recently Relevant to Health Maintenance Care Teams Manager Integration Relationship Specialty Start Date End Date Alejandra Mena MD [address] [place] [address] PCP - General Internal Medicine 05/30/21
--- OUTSIDE RECORDS SUMMARY | 2025-04-13 21:05 | XMS_ITS ---
Author Name [facility] Organization Unknown Care Team Organization Name Specialty Phone Email Start Date End Da te [facility] Alejandra Mena MD Primary Care 03/05/2022 12/15/2023
== END 2025-04-13 20:35 | disposition home or self-care (01) ==
PROVIDERS: Registered Nurse Emergency; Emergency Provider Student in an Organized Health Care Education/Training Program
DX: N20.0 Calculus of kidney (principal); R10.23 Pelvic and perineal pain bilateral; M54.50 Low back pain, unspecified; N50.812 Left testicular pain
CPT/HCPCS: 36415; 74176; 80053; 81003; 85025; 99283; 99284

== ENCOUNTER → 2025-04-13 17:00 | Outpatient (BNV) | payer MEDICAID, SELFPAY | PROVIDERS: Visit Provider Radiology Diagnostic Radiology | DX: N20.0 Calculus of kidney (principal) | CPT/HCPCS: 74176 ==